=== PATIENT | male | born 1980 | race Caucasian/White ===

== ENCOUNTER 2016-09-16 20:55 | Emergency (ER) | payer OTHER ==
[2016-09-16 21:58] LABS: URINE BILIRUBIN NEGATIVE (NEGATIVE); URINE BLOOD NEGATIVE (NEGATIVE); URINE GLUCOSE (UA) NEGATIVE (NEGATIVE); URINE LEUKOCYTE ESTERASE NEGATIVE (NEGATIVE); URINE NITRITE NEGATIVE (NEGATIVE); URINE PROTEIN NEGATIVE (NEGATIVE); URINE UROBILINOGEN NORMAL (0-1 mg/dl)
[2016-09-16 22:01] LABS: URINE APPEARANCE SL CLOUDY; URINE COLOR YELLOW
[2016-09-16 22:07] LABS: URINE RBC 0 /hpf
[2016-09-16 22:08] LABS: URINE AMORPHOUS SEDIMENT MODERATE; URINE EPITHELIAL CELLS 0 /hpf
[2016-09-16 22:09] LABS: URINE BACTERIA 1+
[2016-09-16] MEDS ORDERED: HYDROCODONE/ACETAMINOPHEN 5/325MG TABLET ONE (23:08)
== END 2016-09-16 23:29 | disposition home or self-care (01) ==
LOC: ED 20:55
DX: S39.011A Strain of muscle, fascia and tendon of abdomen, initial encounter (principal); W13.8XXA Fall from, out of or through other building or structure, initial encounter; Y93.23 Activity, snow (alpine) (downhill) skiing, snowboarding, sledding, tobogganing and snow tubing; Y92.39 Other specified sports and athletic area as the place of occurrence of the external cause
CPT/HCPCS: 87086; 81001; 99283 ×2; A9270

== ENCOUNTER 2016-12-25 08:13 | Day surgery (SDC) | payer MEDICAID, OTHER ==
[2016-12-25] MEDS ORDERED: PIPERACILLIN-TAZO PREMIX BAG 50 ML IV ONE (08:56)
[2016-12-25 09:03] LABS: ABSOLUTE NEUTROPHIL COUNT 7.1 K/mm3 (1.8-7.7); BASO # 0.1 K/mm3 (0.0-0.2); BASO % 0.7 % (0.2-1.0); EOS # 0.1 (0.0-0.5); EOS % 0.8 % (0.9-2.9); HEMATOCRIT 47.8 % (32.0-52.0); HEMOGLOBIN 16.5 gm/l (14.0-18.0); IMM NEUT% 0.3 % (0-1); LYMPH # 2.1 (1.0-4.8); LYMPH % 19.9 % (15-45); MEAN CELL VOLUME 92.3 fl (80.0-94.0); MEAN CORPUSCULAR HEMOGLOBIN 31.9 pg (27.0-31.0); MEAN CORPUSCULAR HGB CONC 34.5 g/dl (33.0-37.0); MEAN PLATELET VOLUME 9.4 fl (7.4-10.4); MONO # 1.3 (0.0-0.8); NEUT % 66.3 % (43-75); PLATELET COUNT 240 K/mm3 (130-400); RED CELL DISTRIBUTION WIDTH 12.1 % (11.5-14.5)
[2016-12-25] MEDS ORDERED: MORPHINE SULFATE 4 MG/ML SYRINGE IV PRN ×3 (09:15→13:45)
[2016-12-25] MEDS ORDERED: BLISTEX LIPSTICK 1 EACH TP PRN (09:15)
[2016-12-25] MEDS ORDERED: SODIUM CHLORIDE 0.9% 100 ML IV PRN (09:15)
[2016-12-25] MEDS ORDERED: ONDANSETRON 4 MG/2ML 2 ML VIAL IV PRN ×2 (09:15→13:39)
[2016-12-25 09:16] LABS: CALCIUM 9.1 mg/dL (8.6-10.3)
[2016-12-25] MEDS ORDERED: LACTATED RINGERS 1,000 ML IV SCH ×2 (09:16→12:45)
[2016-12-25] MEDS ORDERED: BUPIVACAINE 0.5% W/EPI SDV 30 ML VIAL ONE (12:08)
[2016-12-25] MEDS ORDERED: FENTANYL 100 MCG/2 ML VIAL ONE (12:20)
[2016-12-25] MEDS ORDERED: PROPOFOL 20 ML IV ONE (12:28)
[2016-12-25] MEDS ORDERED: METOCLOPRAMIDE HCL 5 MG/ML 2ML VIAL ONE (12:28)
[2016-12-25] MEDS ORDERED: ONDANSETRON 4 MG/2ML 2 ML VIAL ONE (12:28)
[2016-12-25] MEDS ORDERED: FAMOTIDINE 10 MG/ML 2ML VIAL ONE (12:28)
[2016-12-25] MEDS ORDERED: HYDROMORPHONE HCL 2 MG/ML SYRINGE ONE (12:28)
[2016-12-25] MEDS ORDERED: ROCURONIUM BROMIDE 10 MG/ML DOSE IV ONE (12:28)
[2016-12-25] MEDS ORDERED: KETOROLAC TROMETHAMINE 30 MG/ML 1 ML VIAL ONE (12:28)
[2016-12-25] MEDS ORDERED: NALOXONE HCL 0.4 MG/ML VIAL IV PRN (12:36)
[2016-12-25] MEDS ORDERED: PROMETHAZINE HCL 25 MG/ML VIAL IM PRN (12:36)
[2016-12-25] MEDS ORDERED: ATROPINE SULFATE 0.4 MG/1 ML VIAL IV PRN (12:36)
[2016-12-25] MEDS ORDERED: LABETALOL HCL 5 MG/ML 20ML VIAL IV PRN (12:36)
[2016-12-25] MEDS ORDERED: MEPERIDINE 25 MG/ML SYRINGE IV PRN (12:36)
[2016-12-25] MEDS ORDERED: NEOSTIGMINE METHYLSULFATE 1 MG/ML DOSE ONE (12:47)
[2016-12-25] MEDS ORDERED: GLYCOPYRROLATE 0.2 MG/ML 1ML VIAL ONE (12:47)
[2016-12-25] MEDS ORDERED: PROMETHAZINE HCL 25 MG/ML VIAL ONE (13:09)
[2016-12-25] MEDS ORDERED: LACTATED RINGERS 1,000 ML ONE (13:32)
[2016-12-25] MEDS ORDERED: ACETAMINOPHEN 325 MG TABLET PO PRN (13:39)
[2016-12-25] MEDS ORDERED: KETOROLAC TROMETHAMINE 30 MG/ML 1 ML VIAL IV PRN (13:39)
[2016-12-25] MEDS ORDERED: OXYCODONE HCL 5 MG TABLET PO PRN (13:39)
[2016-12-25] MEDS ORDERED: MORPHINE SULFATE 2 MG/ML SYRINGE IV PRN (13:39)
[2016-12-25] MEDS ORDERED: MORPHINE SULFATE 10 MG/ML SYRINGE IV PRN (13:46)
[2016-12-25] MEDS ORDERED: OXYCODONE HCL 5 MG TABLET ONE (14:28)
[2016-12-25] MEDS ORDERED: ACETAMINOPHEN 325 MG TABLET ONE (16:11)
--- NOTE | 2016-12-25 18:46 | HP ---
JOSE LUIS BENAVIDEZ [id number] DATE OF SERVICE: 12/25/2016 CHIEF COMPLAINT: Perianal pain. HISTORY OF PRESENT ILLNESS: This is a 36-year-old male who is seen in the emergency room in consultation on 12/25/2016. He reports pain near the anus for about two days. He had an episode like this once before many years ago that required it be lanced. This time it seems like it is more on the inside. It has gotten bigger. It is worse with movement. He has felt chilled, but not clearly had fevers. Prior to the onset of symptoms he reports no diarrhea, constipation or blood in his stools. PAST MEDICAL HISTORY: None. PAST SURGICAL HISTORY: He had facial reconstruction following an accident as a child. He had an abdominal urologic procedure at the age of 13 for hematuria. CURRENT MEDICATIONS: 1. Probiotics. 2. Vitamins. ALLERGIES TO MEDICATIONS: None known. FAMILY HISTORY: No familial complications with anesthesia. No family history of intestinal cancers. Dad had prostate cancer. SOCIAL HISTORY: He reports occasional alcohol use. He will smoke occasionally. He does use cannabis occasionally. REVIEW OF SYSTEMS: Constitutional - chills. HEENT - eyes, no complaints. Ears, nose and throat, no complaints. Cardiac - no complaints. Pulmonary - no complaints. GI - as above. - no complaints. Musculoskeletal - no complaints. Neurologic - no complaints. Endocrine - no complaints. Hematologic - no complaints. Psychiatric - no complaints. PHYSICAL EXAMINATION: VITAL SIGNS: Temperature 98.8. Pulse 95. Blood pressure 127/88. Respirations 18. His O2 sat is 97% on room air. GENERAL: He is awake and alert, appears in no acute distress. HEENT: Head is atraumatic and normocephalic. His sclera is nonicteric. Oropharynx has no exudate or erythema. He does have a loose tooth anteriorly on the top right. NECK: Supple, without lymphadenopathy or thyromegaly. LUNGS: Clear to auscultation. Normal respiratory effort. HEART: Regular rate and rhythm. No murmurs heard. ABDOMEN: Soft and nondistended. No tenderness elicited. RECTAL: Exam reveals a tender fluctuant mass posteriorly on the right, consistent with abscess. There is erythema. There is no active drainage. EXTREMITIES: Without cyanosis, clubbing or edema. ASSESSMENT: Perirectal abscess. PLAN: We have talked about incision and drainage of this in the operating room. Because of its proximity to the anus, I would rather do this in the operating room. With this being the second time he has had this, I have told him there is a chance this is related to a fistula and explained what that was. I have told him we often cannot find that at the time of surgery for an acute infection. We discussed the risks of bleeding, infection, need for additional procedures and possible injury to the underlying muscle. He expressed understanding and is willing to proceed. He has received some antibiotics here in the emergency room. We will proceed to the operating room when available.
--- NOTE | 2016-12-25 21:45 | OP ---
JOSE LUIS BENAVIDEZ [id number] DATE OF SERVICE: 12/25/2016 PREOPERATIVE DIAGNOSIS: Perirectal abscess. POSTOPERATIVE DIAGNOSIS: Posterior [id number], causing perirectal abscess. PROCEDURE: Incision and drainage of abscess, with fistulotomy and seton placement. SURGEON: Dr. Golden Chung ANESTHESIA: Elif Warner, general endotracheal. INDICATIONS: This is a 36-year-old male who presented to the emergency room with pain at the anus. Clinically he has a perirectal abscess. This is the second episode for him. DESCRIPTION OF PROCEDURE: With informed consent he was taken to the operating room and he was laid supine on the OR table. General endotracheal anesthetic was administered. The legs were placed in candy cane stirrups. The perianal region was prepped and draped in the usual fashion. I incised into the fluctuant mass posteriorly on the right. Thick purulent material was suctioned. I vigorously irrigated the wound. It extended to the posterior midline. I gently used a probe and was able to identify a fistula. 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 It did have a significant amount of sphincteric muscle between the fistula and the abscess. I decided to place a seton. A silk suture was placed using the probe. I then tied that to a vessel loop and pulled that through. It was tied as to be non-cutting at this time. We appeared to have adequate hemostasis. Some Marcaine with epinephrine was infiltrated around the wound. He tolerated the procedure and was taken to the recovery room in stable condition. Note was made that needle, instrument and lap counts were reported as correct at the time of closure.
== END 2016-12-25 16:39 | disposition home or self-care (01) ==
LOC: ED 08:13 → OR 09:15 → ED 16:39
PROVIDERS: ATTEND Surgery
DX: K60.3 Anal fistula (principal); K61.1 Rectal abscess; K21.9 Gastro-esophageal reflux disease without esophagitis; F17.200 Nicotine dependence, unspecified, uncomplicated
CPT/HCPCS: 85025; 80048; 46060; J1170; J3010; A9270 ×2; J2550; J2765; J1885; J2405; J2543; J7120 ×2